=== PATIENT | female | born 1960 | race Caucasian/White ===

== ENCOUNTER 2016-05-29 14:08 | Inpatient (IN) | payer OTHER ==
[~2016-05-29] VITALS: Ht 167.6 cm; Wt 64.3 kg
[2016-05-30] MEDS ORDERED: SERT-129 PO (10:09)
[2016-05-30] MEDS ORDERED: PREM0.3T2 PO (10:09)
[2016-05-30] MEDS ORDERED: XANA1TAB2 PO (10:09)
[2016-05-30] MEDS ORDERED: PROP40TA3 PO (10:09)
[2016-06-16 05:35] VITALS: BP 98/58; PULSE 57; RESP 16; TEMP 97.6; O2SAT 98
[2016-06-16] MEDS ORDERED: AZIT100S2 PO (06:25)
[2016-06-16] MEDS ORDERED: ceFAZolin 2 GM PREMIX 50 ML ONE (06:39)
[2016-06-16] MEDS ORDERED: VANCOMYCIN HCL 1000 MG VIAL ONE (06:39)
[2016-06-16] MEDS ORDERED: SODIUM CHLOR 0.9% 250 ML INJ 250 ML ONE (06:39)
[2016-06-16] MEDS ORDERED: DEXAMETHASONE SOD PHOS 20 MG/5 ML VIAL ONE (06:39)
[2016-06-16] MEDS ORDERED: LACTATED RINGER'S 1000 ML IV SCH (06:45)
[2016-06-16] MEDS ORDERED: INSULIN HUMAN REGULAR 1,000 UNITS/10 ML VIAL SQ PRN (06:45)
[2016-06-16] MEDS ORDERED: METOPROLOL TARTRATE 25 MG TAB PO PRN (06:45)
[2016-06-16] MEDS ORDERED: SODIUM CHLORID 0.9% 500 ML IV SCH (06:45)
[2016-06-16] MEDS ORDERED: VANCOMYCIN 1000 MG/NS 250 ML (for <70 kg) IV SCH ×2 (07:00)
[2016-06-16] MEDS ORDERED: DEXAMETHASONE SOD PHOS 20 MG/5 ML VIAL IV SCH (07:00)
[2016-06-16] MEDS ORDERED: ceFAZolin 2 GM PREMIX 50 ML IV SCH (07:00)
[2016-06-16] MEDS: POVIDONE IODINE 7.5% SCRUB 118 ML BOTTLE TOP SCH (07:00)
[2016-06-16] MEDS ORDERED: DEXAMETHASONE SOD PHOS 20 MG/5 ML VIAL IV PUSH SCH (07:00)
[2016-06-16] MEDS: CHLORHEXIDINE GLUCONATE 4% SOLN 120 ML BTL TOP SCH (07:00)
[2016-06-16] MEDS ORDERED: GENTAMICIN SULFATE 80 MG/2 ML VIAL ONE (07:04)
[2016-06-16] MEDS ORDERED: ENOX30P SQ (07:08)
[2016-06-16] MEDS ORDERED: ASPI81CH37 CHEW ×2 (07:09→07:13)
[2016-06-16] MEDS ORDERED: PERC5TAB12 PO (07:10)
[2016-06-16] MEDS ORDERED: MAGNESIUM HYDROXIDE SUSP 30 ML CUP PO PRN (07:15)
[2016-06-16] MEDS ORDERED: ALUMINUM/MAGNESIUM/SIMETH 30 ML CUP PO PRN (07:15)
[2016-06-16] MEDS ORDERED: oxyCODONE/ACETAMINOPHEN 5 MG/325 MG TAB PO PRN (07:15)
[2016-06-16] MEDS ORDERED: NALOXONE HCL 0.4 MG/ML AMP IV PRN (07:15)
[2016-06-16] MEDS ORDERED: Post-op Orders (for Pharmacy) MISC XX ONE (07:15)
[2016-06-16] MEDS ORDERED: MORPHINE SULFATE 4 MG/ML INJ IV PUSH PRN (07:15)
[2016-06-16] MEDS ORDERED: BISACODYL 10 MG SUPP PR PRN (07:15)
[2016-06-16] MEDS ORDERED: SODIUM CHLORIDE 0.9% FLUSH 5 ML FLUSH IVF PRN (07:15)
[2016-06-16] MEDS ORDERED: diphenhydrAMINE HCL 50 MG/ML VIAL IV PRN (07:15)
[2016-06-16] MEDS ORDERED: FAMOTIDINE 20 MG/2 ML VIAL ONE (07:39)
[2016-06-16] MEDS ORDERED: fentaNYL CITRATE 250 MCG/5 ML AMP ONE (07:40)
[2016-06-16] MEDS ORDERED: MIDAZOLAM HCL 2 MG/2 ML VIAL ONE (07:43)
[2016-06-16] MEDS ORDERED: BUPIVACAINE LIPOSOME PF 1.3% 20 ML VIAL ONE (07:46)
[2016-06-16] MEDS ORDERED: MIDAZOLAM HCL 5 MG/5 ML VIAL ONE (07:47)
[2016-06-16] MEDS ORDERED: ROPIVACAINE PERI-ARTICULAR INJECTION. PERIART SCH ×5 (08:30)
[2016-06-16] MEDS ORDERED: TRANEXAMIC PERI-ARTICULAR 3,000 MG/NS 100 ML P-ARTICULR SCH ×2 (08:30)
[2016-06-16] MEDS ORDERED: TRANEXAMIC ACID IV SCH (08:30)
[2016-06-16] MEDS ORDERED: SODIUM CHLORIDE 0.9% IV SCH (08:30)
[2016-06-16] MEDS ORDERED: EXPAREL PERI-ARTICULAR INJECTION (TOTAL VOL. 60 ML) P-ARTICULR SCH ×2 (08:30)
[2016-06-16] MEDS: SODIUM CHLORIDE 0.9% FLUSH 5 ML FLUSH IVF SCH ×2 (09:00→21:00)
[2016-06-16] MEDS: SERTRALINE HCL 100 MG TAB PO SCH (10:00)
[2016-06-16] MEDS ORDERED: PREMPRO PO SCH (11:00)
[2016-06-16] MEDS ORDERED: MORPHINE SULFATE 4 MG/ML INJ ONE (11:01)
[2016-06-16] MEDS: SODIUM CHLOR 0.9% 1000 ML INJ 1,000 ML IV SCH ×2 (11:15→16:02)
[2016-06-16] MEDS ORDERED: *morphine SULFATE 8 MG/ML PERIprocedure ONLY ONE ×2 (11:25→11:46)
--- NOTE | 2016-06-16 11:50 | RADRPT ---
EXAM DATE/TIME: 06/16/2016 11:12 [facility] COMPARISON: No previous studies available for comparison. INDICATIONS : Post op total right knee MEDICAL HISTORY : None. SURGICAL HISTORY : Total right knee ENCOUNTER: Initial ACUITY: 1 day PAIN SCORE: Non-responsive. LOCATION: Right knee FINDINGS: Two view examination of the right knee demonstrates post surgical changes following knee replacement. Patellar, femoral and tibial components are well seated and satisfactorily aligned. Small amount of residual air is identified in the joint space. There is loss of acute fracture. CONCLUSION: Satisfactory postop appearance of the right knee following total knee replacement. Pranav Sorenson MD on June 16, 2016 at 11:48 Board Certified Radiologist. This report was verified electronically.
[2016-06-16] MEDS ORDERED: MORPHINE SULFATE 8 MG/ML INJ ONE (11:58)
[2016-06-16] MEDS ORDERED: *HYDROmorphone PF 1 MG VIAL PERIprocedural Use ONLY ONE (12:04)
[2016-06-16] MEDS ORDERED: DO NOT ADM ANY ANTICOAGULANT DRUGS XX PRN (12:30)
[2016-06-16 12:50] VITALS: BP 105/63; PULSE 56; RESP 11; TEMP 96.1; O2SAT 95
[2016-06-16] MEDS ORDERED: ONDANSETRON HCL 4 MG/2 ML VIAL IV PUSH ONE (12:53)
[2016-06-16] MEDS ORDERED: ePHEDrine/NS 25 MG/5 ML SYR IV ONE (12:53)
[2016-06-16] MEDS ORDERED: NEOSTIGMINE 3 MG/3 ML SYR IV ONE (12:53)
[2016-06-16] MEDS ORDERED: NEOSTIGMINE METHYLSULFATE 10 MG/10 ML VIAL IV PUSH ONE (12:53)
[2016-06-16] MEDS ORDERED: PROPOFOL 200 MG/20 ML AMP IV ONE (12:53)
[2016-06-16] MEDS: ONDANSETRON HCL 4 MG/2 ML VIAL IVP PRN (13:04)
[2016-06-16] MEDS: oxyCODONE/ACETAMINOPHEN 5 MG/325 MG TAB PO PRN ×3 (13:04→21:28)
[2016-06-16 16:12] VITALS: BP 116/79; PULSE 64; RESP 16; TEMP 96.3; O2SAT 94
[2016-06-16 19:48] VITALS: O2SAT 96
[2016-06-16 20:00] VITALS: BP 114/76; PULSE 66; RESP 16; TEMP 96; O2SAT 94
[2016-06-16] MEDS ORDERED: ZOLPIDEM TARTRATE 5 MG TAB PO PRN (21:00)
[2016-06-16] MEDS: ALPRAZolam 1 MG TAB PO PRN (21:27)
[2016-06-16] MEDS: PROPRANOLOL HCL 40 MG TAB PO SCH (21:27)
[2016-06-16] MEDS: ENOXAPARIN SODIUM 30 MG/0.3 ML SYRINGE SQ SCH (23:06)
[2016-06-17] VITALS (9 sets, daily range): BP systolic 92–127; BP diastolic 58–76; PULSE 50–78; RESP 16; TEMP 96–97.5; O2SAT 94–99
[2016-06-17] MEDS: oxyCODONE/ACETAMINOPHEN 5 MG/325 MG TAB PO PRN ×6 (01:44→23:36)
[2016-06-17] MEDS: SODIUM CHLOR 0.9% 1000 ML INJ 1,000 ML IV SCH ×2 (01:45→12:34)
[2016-06-17] MEDS: CHLORHEXIDINE GLUCONATE 4% SOLN 120 ML BTL TOP SCH (02:21)
[2016-06-17] MEDS: POVIDONE IODINE 7.5% SCRUB 118 ML BOTTLE TOP SCH (02:21)
[2016-06-17] MEDS: ALPRAZolam 1 MG TAB PO PRN ×3 (03:22→18:01)
[2016-06-17 06:22] LABS: HEMATOCRIT 29.5 % (35.0-46.0); MEAN CELL VOLUME 87.7 FL (80.0-100.0); MEAN CORPUSCULAR HEMOGLOBIN 29.9 PG (27.0-34.0); MEAN CORPUSCULAR HGB CONC 34.1 % (32.0-36.0); PLATELET COUNT 268 TH/MM3 (150-450); RED BLOOD COUNT 3.37 MIL/MM3 (4.00-5.30); RED CELL DISTRIBUTION WIDTH 14.5 % (11.6-17.2); REVIEW FLAG FINAL; WHITE BLOOD COUNT 11.9 TH/MM3 (4.0-11.0)
[2016-06-17 06:51] LABS: BICARBONATE 26.8 MEQ/L (21.0-32.0); POTASSIUM 4.3 MEQ/L (3.5-5.1)
--- NOTE | 2016-06-17 08:15 | PD.ORT.PN ---
Subjective Post Op Day #: 1 Subjective Remarks pain tolerable. has not worked with PT. Objective Vitals Vital Signs Date Time Temp Pulse Resp B/P Pulse Ox O2 Delivery O2 Flow Rate FiO2 06/17/16 07:48 99 Nasal Cannula 21 06/17/16 04:00 96.2 78 16 95/65 94 06/17/16 00:00 96.0 71 16 101/58 94 06/16/16 20:00 96.0 66 16 114/76 94 06/16/16 19:48 96 21 06/16/16 16:12 96.3 64 16 116/79 94 06/16/16 12:50 96.1 56 11 105/63 95 06/16/16 12:13 48 12 98 Nasal Cannula 3 06/16/16 12:03 12 06/16/16 12:00 51 12 117/73 98 Nasal Cannula 3 06/16/16 11:51 12 06/16/16 11:30 12 06/16/16 11:30 97.6 48 12 155/94 98 Nasal Cannula 3 06/16/16 11:15 46 12 155/94 98 Nasal Cannula 3 06/16/16 11:00 50 12 147/97 98 Nasal Cannula 3 06/16/16 10:51 97.7 62 14 162/106 97 Nasal Cannula 3 I/O 06/16/16 06/16/16 06/16/16 06/17/16 06/17/16 06/17/16 07:00 15:00 23:00 07:00 15:00 23:00 Intake Total 820 ml 240 ml 240 ml Output Total 425 ml 350 ml 300 ml Balance 395 ml -110 ml -60 ml Intake Oral 120 ml 240 ml 240 ml Other 700 ml Output Urine Total 400 ml 350 ml 300 ml Estimated Blood Loss 25 ml # Voids 0 # Bowel Movements 0 0 Result Diagram: 06/17/16 0543 06/17/16 0543 Objective Remarks in bed, nad incision no erythema, no drainage neg homans nvi Assessment & Plan Ortho Post Op Day #: 1 Problem List: Assessment and Plan s/p R TKA wbat daily dressing changes lovenox rx in chart d/c planning home with hhc and pt - likely today or tomorrow depending on progress in PT f/up dr. zapata 2 weeks Manuel Win Jun 17, 2016 08:15
--- NOTE | 2016-06-17 08:17 | HHI.DCPOC ---
Discharge Care Plan Diagnosis: (1) Primary localized osteoarthrosis, lower leg Your Health Problems Are: Difficulty with ADL Goals to Promote Your Health * To prevent worsening of your condition and complications * To maintain your health at the optimal level Directions to Meet Your Goals Take your medications as prescribed Follow your dietary instruction Follow activity as directed Keep your appointments as scheduled Take your immunizations and boosters as scheduled If your symptoms worsen call your PCP, if no PCP go to Urgent Care Center or Emergency Room Smoking is Dangerous to Your Health. Avoid second hand smoke Call the 24-hour hour crisis hotline for domestic abuse at Manuel Win Jun 17, 2016 08:17
--- NOTE | 2016-06-17 08:18 | HHI.FF ---
Face to Face Verification Diagnosis: (1) Primary localized osteoarthrosis, lower leg Physical Therapy Gait training, Safety evaluation, Transfer training, bed to chair Knee: Total knee, Protocol: Right, Full weight bearing Right LE Weight Bearing: WB as tolerated Nursing RN: 3 days/week x 2 weeks Nursing: Cecilia teaching, Dressing changes Dressing Changes: Daily dressing change I have seen patient Chichi Sanford on 06/17/16. My clinical findings support the need for the requested home health care services because: Limited ability to care for self High risk of falls I certify that my clinical findings support that this patient is homebound because: Post-op weakness Unsteady gait/balance Manuel Win Jun 17, 2016 08:18
[2016-06-17] MEDS: PROPRANOLOL HCL 40 MG TAB PO SCH ×2 (08:39→23:35)
[2016-06-17] MEDS: SERTRALINE HCL 100 MG TAB PO SCH (08:39)
[2016-06-17] MEDS: ONDANSETRON HCL 4 MG/2 ML VIAL IVP PRN (08:40)
[2016-06-17] MEDS: SODIUM CHLORIDE 0.9% FLUSH 5 ML FLUSH IVF SCH ×2 (09:00→23:36)
--- NOTE | 2016-06-17 12:30 | MB ---
cc: ZARI VASQUEZ DATE OF CONSULTATION June 17, 2016 CONSULTATION REQUESTED BY Manuel García MD REASON FOR CONSULTATION Assistance with medical management including gastroparesis, PTSD and anxiety. HISTORY OF PRESENT ILLNESS This 56-year-old white female, well-known to the undersigned physician was admitted to this facility for right total knee replacement. The patient has advanced osteoarthritis which failed conservative measures. She underwent a right total knee replacement yesterday. She is postop day #1. The patient has had minimal discomfort as a postoperative block was applied. She states that she did not sleep very well last night. She has had some nausea this morning but she has a history of gastroparesis and has not received her azithromycin which she takes twice a day for the gastroparesis. She has had no emesis. She denies any chest pain, shortness of breath, lightheadedness, dizziness, headache, visual changes. Her urine output been good. She has had no abdominal pain. The patient denies any anxiety or panic attacks at this time. PAST MEDICAL HISTORY 1. Previous left total knee replacement. 2. Chronic hepatitis C genotype I-B. 3. Hemorrhoids. 4. PTSD with panic disorder. 5. Osteopenia. 6. Palindromic rheumatism. 7. History of gastritis and duodenitis. 8. History of cubital tunnel syndrome in 2007 which has resolved. 9. She has a history of alcohol abuse but has been sober over the last couple years. 10. She is status post bilateral oophorectomies. 11. Bilateral cubital tunnel release. 12. Status post bilateral rotator cuff surgery. 13. Status post appendectomy. CURRENT MEDICATIONS 1. Colace 100 mg twice daily. 2. Lovenox 30 mg subcutaneously daily. 3. Propranolol 40 mg b.i.d. 4. Zolpidem 5 mg at bedtime as needed for insomnia. 5. Sertraline 100 mg daily. 6. Alprazolam 1 mg every 6 hours as needed for anxiety. 7. Oxycodone. 8. Acetaminophen 5/325 mg 1-2 tablets every 4 hours as needed for pain. 9. Zofran 4 mg every 6 hours IV as needed for nausea. 10. Milk of magnesia p.r.n. ALLERGIES DEMEROL. CODEINE. VICODIN. FAMILY HISTORY Noncontributory SOCIAL HISTORY She is . She lives with her . She is a homemaker. She he is a smoker but she has reduced her cigarette smoking to less than half a pack a day. She does have a history of alcohol abuse but has been sober over the last couple years. She does attend regular AA meetings. REVIEW OF SYSTEMS Negative as outlined above. PHYSICAL EXAMINATION VITAL SIGNS: The current time blood pressure is 95/65 with a heart rate of 78, respirations 16, temperature 96.2 degrees Fahrenheit orally and oxygen saturation on room air is 99%. IN GENERAL: This is a thin but well-nourished middle-aged white female in no acute distress, sitting up in bed. HEENT: Pupils equal, round react to light. Extraocular movements are intact. Sclerae anicteric. Conjunctivae pink. Mouth and throat reveal moist mucous membranes. No erythema or exudates. Dentition is good. NECK: Supple without lymphadenopathy, JVD, bruits or thyromegaly. CARDIOVASCULAR: Regular rate and rhythm without murmurs, rubs or gallops. LUNGS: Clear to auscultation without wheezes, rhonchi or rales. ABDOMEN: Soft, nontender, nondistended. Bowel sounds present. No mass palpable, no hepatosplenomegaly. AND RECTAL: Deferred. EXTREMITIES: The bilateral lower extremities reveal no calf tenderness. No Homans' sign. 2+ distal pulses. No appreciable edema. There is a knee immobilizer in placed on the right lower extremity. NEUROLOGIC EXAMINATION: The patient awake, alert, oriented x 3. Speech is intact. Cranial nerves intact. No lateralizing deficits. No cognitive or memory deficits. SKIN: Warm and dry. LABORATORY DATA The patient's white blood cell count was 11.9, hemoglobin 10.1, hematocrit 29.5. The basic metabolic profile was within normal limits with the exception of a chloride of 108. Calcium was low at 8.3 but this was not protein corrected. IMPRESSION AND PLAN 1. This 56-year-old white female is status post right total knee replacement. We will defer therapy orders, weightbearing status and wound care to orthopedic surgery. 2. DVT prophylaxis. The patient will continue with Lovenox. 3. History of gastroparesis. The patient is having some mild nausea this morning. We will resume azithromycin 100 mg twice daily before breakfast and dinner and will follow. 4. History of PTSD and panic disorder. The patient continues with Xanax and sertraline. She is also on propranolol which is being used to treat her physiologic manifestations of her anxiety including frequent hyperhidrosis. The patient currently is asymptomatic for any exacerbations of her psychiatric condition. 5. Anemia. We will follow H&H. Thank you for this consultation. I will follow this patient with you this. MD SUDHA Tang/JAC /7:55 AM /11:09 AM
[2016-06-17] MEDS ORDERED: AZITHROMYCIN SUSP 200 MG/5 ML 15 ML BTL PO SCH (16:00)
[2016-06-17] MEDS: AZITHROMYCIN SUSP 200 MG/5 ML 15 ML BTL PO SCH (23:34)
[2016-06-17] MEDS: ENOXAPARIN SODIUM 30 MG/0.3 ML SYRINGE SQ SCH (23:34)
[2016-06-17] MEDS: DOCUSATE SODIUM 100 MG CAP PO SCH (23:35)
[2016-06-17] MEDS: MULTIVITAMINS/MINERALS THERAPEUTIC TAB PO SCH (23:35)
[2016-06-18] MEDS: SODIUM CHLOR 0.9% 1000 ML INJ 1,000 ML IV SCH (01:00)
[2016-06-18] MEDS: oxyCODONE/ACETAMINOPHEN 5 MG/325 MG TAB PO PRN ×2 (04:26→08:50)
[2016-06-18 04:48] LABS: HEMATOCRIT 27.4 % (35.0-46.0); MEAN CELL VOLUME 87.9 FL (80.0-100.0); MEAN CORPUSCULAR HEMOGLOBIN 30.6 PG (27.0-34.0); MEAN CORPUSCULAR HGB CONC 34.8 % (32.0-36.0); PLATELET COUNT 223 TH/MM3 (150-450); RED BLOOD COUNT 3.12 MIL/MM3 (4.00-5.30); RED CELL DISTRIBUTION WIDTH 14.5 % (11.6-17.2); REVIEW FLAG FINAL
[2016-06-18 05:17] LABS: BICARBONATE 29.1 MEQ/L (21.0-32.0); POTASSIUM 4.2 MEQ/L (3.5-5.1)
[2016-06-18 07:35] VITALS: O2SAT 97
--- NOTE | 2016-06-18 07:45 | PD.ORT.PN ---
Subjective Post Op Day #: 2 Subjective Remarks doing well. pain controlled. feels she is ready to go home. Objective Vitals Vital Signs Date Time Temp Pulse Resp B/P Pulse Ox O2 Delivery O2 Flow Rate FiO2 06/18/16 06:40 Room Air 06/17/16 23:45 96.8 54 16 92/62 96 06/17/16 20:25 96.6 59 16 94/61 97 06/17/16 19:15 97 21 06/17/16 16:00 96.8 50 16 127/76 98 06/17/16 12:00 97.5 52 16 116/68 98 06/17/16 08:00 96.0 56 16 105/69 99 06/17/16 07:48 99 Nasal Cannula 21 I/O 06/17/16 06/17/16 06/17/16 06/18/16 06/18/16 06/18/16 07:00 15:00 23:00 07:00 15:00 23:00 Intake Total 240 ml 1320 ml 240 ml Output Total 300 ml Balance -60 ml 1320 ml 240 ml Intake Oral 240 ml 1320 ml 240 ml Output Urine Total 300 ml # Voids 7 2 # Bowel Movements 0 0 Result Diagram: 06/18/167 06/18/16406 Objective Remarks in bed, nad dressing c/d/i demonstrates straight leg raise with no difficulty neg marla naranjoi Assessment & Plan Ortho Post Op Day #: 2 Problem List: Assessment and Plan s/p R TKA wbat daily dressing changes lovenox rx in chart d/c planning home with [facility] and pt - cleared for d/c today f/up dr. zapata 2 weeks Manuel Win Jun 18, 2016 07:45
[2016-06-18 08:00] VITALS: BP 143/84; PULSE 54; RESP 16; TEMP 95.8; O2SAT 96
--- NOTE | 2016-06-18 08:42 | HHI.PR ---
Subjective Remarks Pain under adequate control. Ambulating with walker. PO intake good. wants to go home. No complaint of any anxiety or panic attacks. Current Medications Medications (Trade) Dose Ordered Sig/Se Route Start Time Stop Time Status Last Admin (Betadine 7.5% Scrub) 1 applic ONCE TOP 06/16/16 07:00 06/19/16 06:59 (Hibiclens 4% Top Soln) 1 applic ONCE TOP 06/16/16 07:00 06/19/16 06:59 (Xanax) 1 mg Q6H PRN PO 06/16/16 07:15 06/17/16 18:01 (Inderal) 40 mg BID PO 06/16/16 21:00 06/17/16 23:35 (Zoloft) 100 mg DAILY PO 06/16/16 10:00 06/17/16 08:39 Patient Own Medication PT OWN MED: CHARLINE... DAILY PO 06/16/16 11:00 Hold (NS 1000 ml Inj) 1,000 ml @ 100 mls/hr Q10H IV 06/16/16 09:00 06/17/16 01:45 (NS Flush) 2 ml UNSCH PRN IVF 06/16/16 07:15 (NS Flush) 2 ml BID IVF 06/16/16 09:00 06/17/16 23:36 (Lovenox Inj) 30 mg Q24H SQ 06/16/16 23:00 06/17/16 23:34 (Morphine Inj) 3 mg Q3H PRN IV PUSH 06/16/16 07:15 (Percocet 5-325 Mg) 1 tab Q4H PRN PO 06/16/16 07:15 (Percocet 5-325 Mg) 2 tab Q4H PRN PO 06/16/16 07:15 06/18/16 04:26 (Theragran M Tab) 1 tab BID PO 06/17/16 21:00 08/16/16 20:59 06/17/16 23:35 (Zofran Inj) 4 mg Q6H PRN IVP 06/16/16 07:15 06/17/16 08:40 (Colace) 100 mg BID PO 06/17/16 21:00 06/17/16 23:35 (Mag-Al Plus Susp Liq) 30 ml Q6H PRN PO 06/16/16 07:15 (Ambien) 5 mg HS PRN PO 06/16/16 21:00 (Dulcolax Supp) 10 mg DAILY PRN MA 06/16/16 07:15 (Milk Of Magnesia Liq) 30 ml DAILY PRN PO 06/16/16 07:15 06/17/16 08:39 (Narcan Inj) 0.4 mg UNSCH PRN IV 06/16/16 07:15 (Benadryl Inj) 25 mg Q6H PRN IV 06/16/16 07:15 (Zithromax 200 Mg/5 ml Liq) 100 mg BIDAC PO 06/17/16 21:00 06/17/16 23:34 Objective Vital Signs Date Time Temp Pulse Resp B/P Pulse Ox O2 Delivery O2 Flow Rate FiO2 06/18/16 06:40 Room Air 06/17/16 23:45 96.8 54 16 92/62 96 06/17/16 20:25 96.6 59 16 94/61 97 06/17/16 19:15 97 21 06/17/16 16:00 96.8 50 16 127/76 98 06/17/16 12:00 97.5 52 16 116/68 98 I/O 06/17/16 06/17/16 06/17/16 06/18/16 06/18/16 06/18/16 07:00 15:00 23:00 07:00 15:00 23:00 Intake Total 240 ml 1320 ml 240 ml Output Total 300 ml Balance -60 ml 1320 ml 240 ml Intake Oral 240 ml 1320 ml 240 ml Output Urine Total 300 ml # Voids 7 2 # Bowel Movements 0 0 Result Diagram: 06/18/16 0407 06/18/16 040 Assessment and Plan Problem List: (1) Hip joint replacement status Status: Acute Plan: POD # 2. Doing well. Discharge today with HH orders and activity orders per ortho. (2) At high risk for deep venous thrombosis Status: Acute Plan: Cont Lovenox (3) PTSD (post-traumatic stress disorder) Status: Chronic Plan: Under adequate control with current medication (4) Panic disorder Status: Chronic Plan: No panic attacks with current medication (5) Postoperative anemia Status: Acute Plan: Follow H&H as outpatient Discharge Planning Medically stable for discharge today Dell Trevino MD Jun 18, 2016 08:42
[2016-06-18] MEDS: PROPRANOLOL HCL 40 MG TAB PO SCH (08:49)
[2016-06-18] MEDS: SODIUM CHLORIDE 0.9% FLUSH 5 ML FLUSH IVF SCH (08:51)
[2016-06-18] MEDS: MULTIVITAMINS/MINERALS THERAPEUTIC TAB PO SCH (08:51)
[2016-06-18] MEDS: SERTRALINE HCL 100 MG TAB PO SCH (08:51)
[2016-06-18] MEDS: DOCUSATE SODIUM 100 MG CAP PO SCH (08:51)
[2016-06-18] MEDS: AZITHROMYCIN SUSP 200 MG/5 ML 15 ML BTL PO SCH (08:53)
--- NOTE | 2016-06-18 14:24 | MP ---
cc: NEEL MARTINEZ DATE OF SURGERY: 06/16/2016 PREOPERATIVE DIAGNOSIS Right knee osteoarthritis. POSTOPERATIVE DIAGNOSIS Right knee osteoarthritis. PROCEDURE Right total knee arthroplasty. SURGEON Dr. Neel Martinez SPEECH AND LANGUAGE CLINICIAN Neel Win PA-C ANESTHESIA General with a femoral nerve block. ESTIMATED BLOOD LOSS 25 cc. COMPLICATIONS None. TOURNIQUET TIME 44 minutes at 250 mmHg. IMPLANTS USED DePuy Attune size 6 posterior stabilized femoral component, size 5 rotating platform tibia baseplate, size 35 mm patella, size 5 polyethylene tibial insert. JUSTIFICATION This patient is a 56-year-old female with a history of severe end-stage degenerative osteoarthritis involving the right knee. She has severe disabling pain with standing, walking, ambulation and weightbearing activities, and even severe pain at rest. She has failed greater than three months of nonoperative conservative treatment to include medication, therapy, injections, ambulatory assisted aids, home exercise program, and activity modification. The patient is not overweight. X-rays of the right knee revealed severe end-stage osteoarthritis, [id number] joint space narrowing, subchondral sclerosis, subchondral cysts, osteophyte formation with varus deformity. The patient was counseled as to the risks, benefits and alternatives to a total knee arthroplasty. The risks were discussed which include but are not limited to an, bleeding, infection, damage to nerves and blood vessels, pain, failure of the components, blood clots, pulmonary embolism, and even . The patient's pain is severe. She favored the benefits over the risks and she did wish to proceed with surgery. PROCEDURE IN DETAIL Written consent was obtained. The patient was identified by name, taken to the operating room and placed supine on the operating table. General anesthesia was administered as well as 2 grams of IV Ancef and 1 gram of IV vancomycin. A well-padded tourniquet was placed on the right thigh. The right lower extremity was prepped and draped using isopropyl alcohol, Hibiclens solution and ChloraPrep solution. After a timeout was performed an Esmarch bandage was used to exsanguinate the right lower extremity and the tourniquet inflated to 250 mmHg. A longitudinal incision was made over the anterior aspect of the right knee. A medial parapatellar arthrotomy was performed. The patella was everted. A patella resection guide was used to resect 9.5 mm of patella. The size 35 mm guide was placed. Three drill holes were placed and the 35 mm trial fit well. Attention was turned to the femur where an intramedullary guide rick was placed and the distal femoral guide was set to remove 10 mm of distal femur 5 degrees off the anatomic valgus axis alignment. An oscillating saw was used to perform the distal femoral cut. Attention was turned to the tibia where an extramedullary tibial guide was used to remove 5 mm off the lowest portion of the medial tibial plateau. A tibia guide was pinned in place. The tibia cut was performed. A 5 mm spacer block showed full extension. Attention was turned back to the femur where the AP sizing block measured a size 6. The anterior reference, 3 degree external rotation guide was used to pin a size [address] The anterior, posterior and chamfer cuts were performed. A size 6 PCL box guide was pinned in place and the PCL was box cut with an oscillating saw. The medial and lateral meniscus remnants were removed as well as bone and soft tissue debris from the posterior portion of the knee. A size 5 tibia baseplate was pinned in place. The tibia was drilled and punched. The trial components were evaluated and the final components cemented in place. With the 5 mm tibial insert the leg could achieved full extension to 0 degrees and flexion to 140. No evidence of tibial lift-off. Varus-valgus balance appeared appropriate and symmetric. The patella was noted to track centrally. The tourniquet was deflated. Bovie cautery was used for hemostasis. The knee was thoroughly irrigated with sterile saline pulse lavage antibiotic-impregnated solution. The arthrotomy incision was closed with #1 Vicryl suture, the subcutaneous layer with 2-0 Vicryl suture. The skin was closed Dermabond. Sterile dressing was applied. The patient tolerated the procedure well with no intraoperative complications noted. Neel Win, physician assistant general manager certified, was present during the entire procedure to include patient positioning and the procedure itself. The medical necessity of a physician assistant general manager was indicated in this case due to the complexity of the procedure. He assisted with appropriate manipulation of the leg and also retraction of muscle, tendon, bone and neurovascular structures. He assisted with both bone cuts and also implantation of the prosthetic replacement. MD KATHY Mitchell/EVA /9:29 AM /12:58 PM
--- NOTE | 2016-06-23 12:05 | MD ---
cc: NEEL MARTINEZ ADMISSION DATE: 06/16/2016 DISCHARGE DATE: 06/18/2016 ADMISSION DIAGNOSIS Severe degenerative osteoarthritis right knee. DISCHARGE DIAGNOSIS Severe degenerative osteoarthritis right knee. HISTORY OF PRESENT ILLNESS Mrs. Sanford is a 56-year-old female who presented to the [facility] for evaluation by Dr. eNel Martinez regarding her severe and progressive right knee pain. The patient states the right knee pain is a constant severe aching sensation that is inhibiting her activities of daily living. The pain has been present for greater than one year duration for which she has been treated for this ailment. She does have a history of a well-functioning left total knee arthroplasty. The patient states the right knee pain has no alleviating factors at this point in time, although in the past she has tried medications, bracing, physical therapy and home exercise program. The patient is not overweight and she has had multiple corticosteroid injections without long-lasting relief of symptoms. She does have x-ray evidence of severe degenerative osteoarthritis of the right knee. While in the office the patient was counseled on her diagnosis and treatment options, the risks, benefits, indications were all discussed in great detail. The patient did elect to proceed with surgical intervention to include a right total knee arthroplasty. DATE OF SURGERY 06/16/2016 OPERATIVE PROCEDURE Right total knee arthroplasty. POSTOP After surgery the patient was admitted to [facility] where she received appropriate medical management, pain control, DVT prophylaxis as well as physical therapy. DISCHARGE Once being discharged from the hospital, the patient is cleared to go home where she will receive home health care and home physical therapy. CONDITION ON DISCHARGE She is in stable condition. DISPOSITION The patient may weight-bear as tolerated. She is to receive daily dressing changes and has been instructed on proper wound care management. DISCHARGE MEDICATIONS Patient has been provided prescriptions for DVT prophylaxis as well as pain medication. FOLLOWUP She has also provided a follow-up appointment to see Dr. Neel Martinez in the office in approximately two weeks from her date of surgery. The patient has asked appropriate questions which have all been answered. The patient is cleared for discharge. Dictated by: Waldemar Win PA-C MD KATHY Mitchell/JAC /7:49 AM 12:05 PM
== END 2016-06-18 10:59 | disposition home health service (06) | DRG 470 ==
LOC: HSDI 06-16 05:28 → N06A 06-16 13:39
PROVIDERS: ADMIT Orthopaedic Surgery Sports Medicine; ATTEND Orthopaedic Surgery Sports Medicine
PROC: 3E0T3CZ (ICD-10-PCS; 2016-06-16)
PROC: 0SRC0J9 Replacement of Right Knee Joint with Synthetic Substitute, Cemented, Open Approach (ICD-10-PCS; principal; 2016-06-16 08:41)
DX: M17.11 Unilateral primary osteoarthritis, right knee (principal); K31.84 Gastroparesis; F43.10 Post-traumatic stress disorder, unspecified; B18.2 Chronic viral hepatitis C; M85.80 Other specified disorders of bone density and structure, unspecified site; M79.0 Rheumatism, unspecified; F17.210 Nicotine dependence, cigarettes, uncomplicated; F41.0 Panic disorder [episodic paroxysmal anxiety]; D64.9 Anemia, unspecified; Z96.652 Presence of left artificial knee joint
CPT/HCPCS: 73560; 80048; 85027; 86850; 86900; 86901; 94150; C1776; C9290; J0690; J1100; J1170; J1580; J1650; J2250; J2270; J2405; J2710; J3010; J3370; J7030; J7050; J7120; L1830

== ENCOUNTER → 2016-05-30 | Outpatient (CLI) | payer OTHER ==
[~2016-05-30] MED LIST: ASPI81CH37 CHEW; AZIT100S2 PO; DICL1GEL TOPICAL; ENOX30P SQ; ESTR.625 PO; PERC5TAB12 PO; PREM0.3T2 PO; PROP40TA3 PO; SERT-129 PO; XANA0.5T PO; XANA1TAB2 PO; ZOLO100T PO
[2016-05-30 09:52] LABS: AUTOMATED NEUTROPHIL # 3.2 TH/MM3 (1.8-7.7); BASOPHIL # 0.1 TH/MM3 (0-0.2); BASOPHIL % 1.4 % (0.0-2.0); EOSINOPHIL # 0.1 TH/MM3 (0-0.4); EOSINOPHIL % 1.9 % (0.0-4.0); HEMATOCRIT 38.4 % (35.0-46.0); HEMO FLAGS DIFF FINAL; LYMPH % 39.1 % (9.0-44.0); LYMPHOCYTE # 2.5 TH/MM3 (1.0-4.8); MEAN CELL VOLUME 87.7 FL (80.0-100.0); MEAN CORPUSCULAR HEMOGLOBIN 29.4 PG (27.0-34.0); MEAN CORPUSCULAR HGB CONC 33.5 % (32.0-36.0); MONO % 7.9 % (0.0-8.0); NEUT % 49.7 % (16.0-70.0); PLATELET COUNT 370 TH/MM3 (150-450); RED BLOOD COUNT 4.38 MIL/MM3 (4.00-5.30); RED CELL DISTRIBUTION WIDTH 14.4 % (11.6-17.2); WHITE BLOOD COUNT 6.4 TH/MM3 (4.0-11.0)
[2016-05-30 09:59] LABS: APTT (PATIENT) 28.5 SEC (24.3-30.1); INTERNATIONAL NORMALIZED RATIO 0.9 RATIO; PROTHROMBIN TIME - PATIENT 10.1 SEC (9.8-11.6)
[2016-05-30 10:05] LABS: BLOOD, URINE NEG (NEG); COMMENT (UR) CULT NOT INDICATED; CULTURE IF INDICATED CULT NOT INDICATED; GLUCOSE,URINE NEG (NEG); KETONE, URINE NEG (NEG); MUCUS URINE FEW /lpf (OCC); NITRITE,URINE NEG (NEG); PH, URINE 6.5 (5.0-8.5); SQUAMOUS EPITHELIAL CELL URINE 3 /hpf (0-5); URINE COLOR YELLOW (YELLW/STRAW)
[2016-05-30 10:08] LABS: WESTERGREN SEDIMENTATION RATE 41 mm/hr (0-30)
[2016-05-30 10:17] LABS: ALKALINE PHOSPHATASE 133 U/L (45-117); ALT (GPT) 57 U/L (10-53); ANION GAP 7 MEQ/L (5-15); AST (GOT) 39 U/L (15-37); BICARBONATE 29.3 MEQ/L (21.0-32.0); BLOOD UREA NITROGEN 18 MG/DL (7-18); CHLORIDE 104 MEQ/L (98-107); GLOMERULAR FILTRATION RATE 59 ML/MIN (>89); GLUCOSE,FASTING 93 MG/DL (74-99); POTASSIUM 4.8 MEQ/L (3.5-5.1); SODIUM (NA) 140 MEQ/L (136-145); TOTAL BILIRUBIN ADULT 0.5 MG/DL (0.2-1.0)
--- NOTE | 2016-05-30 11:49 | RADRPT ---
EXAM DATE/TIME: 05/30/2016 11:20 [facility] COMPARISON: No previous studies available for comparison. INDICATIONS : Evaluate for pneumonia, pneumothorax and communicable diseases. Pre-op knee surgery MEDICAL HISTORY : None. SURGICAL HISTORY : None. ENCOUNTER: Initial ACUITY: 1 day PAIN SCORE: 0/10 LOCATION: chest FINDINGS: PA and lateral views of the chest demonstrate the lungs to be symmetrically aerated without evidence of mass, infiltrate or effusion. The cardiomediastinal contours are unremarkable. Osseous structure s are intact. CONCLUSION: Normal examination for a patient of this age. Lázaro Cam MD on May 30, 2016 at 11:47 Board Certified Radiologist. This report was verified electronically.
--- NOTE | 2016-05-30 21:54 | EKG ---
Date Performed: 05/30/2016 Time Performed: 09:48:20 PTAGE: 56 years EKG: SINUS BRADYCARDIA LOW QRS VOLTAGE IN PRECORDIAL LEADS INCOMPLETE RIGHT BUNDLE BRANCH BLOCK POSSIBLE INFERIOR MYOCARDIAL INFARCTION, PROBABLY OLD ANTEROSEPTAL MYOCARDIAL INFARCTION, OF INDETERM INATE AGE ABNORMAL ECG NO PREVIOUS TRACING DOCTOR: Jimmy Fang Interpretating Date/Time 05/30/2016 21:53:50
== END ==
LOC: CPRE 09:09
PROVIDERS: ATTEND Orthopaedic Surgery Sports Medicine
DX: Z01.810 Encounter for preprocedural cardiovascular examination (principal); Z01.811 Encounter for preprocedural respiratory examination; Z01.812 Encounter for preprocedural laboratory examination; Z01.818 Encounter for other preprocedural examination; Z96.60 Presence of unspecified orthopedic joint implant; Z79.01 Long term (current) use of anticoagulants; M17.11 Unilateral primary osteoarthritis, right knee; M25.50 Pain in unspecified joint
CPT/HCPCS: 36415; 71020; 80053; 81001; 85025; 85610; 85652; 85730; 93005